=== PATIENT | female | born 1985 | race Caucasian/White ===

== ENCOUNTER 2017-08-15 14:32 | Emergency (ER) | payer SELFPAY ==
[~2017-08-15] VITALS: Ht 165.1 cm; Wt 96.2 kg
[2017-08-15 14:58] VITALS: BP 179/95; PULSE 82; RESP 16; TEMP 97.4; O2SAT 98
[2017-08-15 15:19] LABS: BILIRUBIN, URINE NEG (NEG); BLOOD, URINE NEG (NEG); GLUCOSE,URINE NEG (NEG); KETONE, URINE 40 mg/dL (NEG); NITRITE,URINE NEG (NEG); PH, URINE 5.5 (5.0-8.5); URINE COLOR YELLOW (YELLW/STRAW); URINE LEUKOCYTE ESTERASE NEG (NEG)
[2017-08-15] MEDS ORDERED: SODIUM CHLOR 0.9% 1000 ML INJ 1,000 ML IV SCH (15:19)
--- NOTE | 2017-08-15 15:29 | PD ---
HPI Chief Complaint: Abdominal Pain Time Seen by Provider: 15:18 Travel History International Travel<30 days: No Contact w/Intl Traveler<30days: No Traveled to known affect area: No History of Present Illness HPI Patient complains of epigastric to right upper quadrant area pain, radiating towards the back, 8 out of 10, onset this morning intermittently occurring throughout the day and not really improving. Patient has associated nausea but without vomiting or diarrhea. Patient denies any alleviating or aggravating factors. Patient denies any associated factors such as fever, rash, neck stiffness, headache, chest pain, back pain, No known drug allergies Past medical and past surgical history only significant for appendectomy PFSH Past Medical History Medical History: Denies Significant Hx Diminished Hearing: No Tetanus Vaccination: Unknown ?: Not LMP: 07/27/17 Past Surgical History Appendectomy: Yes Social History Alcohol Use: Yes (SOC) Tobacco Use: Yes (06/17 PPD) Substance Use: No Allergies-Medications (Allergen,Severity, Reaction): Coded Allergies: No Known Allergies (Unverified , 08/15/17) Reported Meds & Prescriptions Reported Meds & Active Scripts Active Carafate (Sucralfate) 1 Gram Tab 1 Gm PO TID On empty stomach Ultram (Tramadol HCl) 50 Mg Tab 50 Mg PO Q8H PRN Zofran Odt (Ondansetron Odt) 4 Mg Tab 4 Mg SL Q6HR PRN Review of Systems General / Constitutional: No: Fever Eyes: No: Visual changes HENT: No: Headaches Cardiovascular: No: Chest Pain or Discomfort Respiratory: No: Shortness of Breath Gastrointestinal: Positive: Nausea, Vomiting, Abdominal Pain Genitourinary: No: Dysuria Musculoskeletal: No: Pain Skin: No Rash Neurologic: No: Weakness Psychiatric: No: Depression Endocrine: No: Polydipsia Hematologic/Lymphatic: No: Easy Bruising Physical Exam Narrative GENERAL: SKIN: Warm and dry. HEAD: Atraumatic. Normocephalic. EYES: Pupils equal and round. No scleral icterus. No injection or drainage. ENT: No nasal bleeding or discharge. Mucous membranes pink and moist. NECK: Trachea midline. No JVD. CARDIOVASCULAR: Regular rate and rhythm. RESPIRATORY: No accessory muscle use. Clear to auscultation. Breath sounds equal bilaterally. GASTROINTESTINAL: Abdomen soft, non-tender, nondistended. MUSCULOSKELETAL: Extremities without clubbing, cyanosis, or edema. No obvious deformities. NEUROLOGICAL: Awake and alert. No obvious cranial nerve deficits. Motor grossly within normal limits. Five out of 5 muscle strength in the arms and legs. Normal speech. PSYCHIATRIC: Appropriate mood and affect; insight and judgment normal. Data Data Last Documented VS Vital Signs Date Time Temp Pulse Resp B/P (MAP) Pulse Ox O2 Delivery O2 Flow Rate FiO2 08/15/17 15:40 98 Room Air 08/15/17 14:58 97.4 82 16 179/95 (123) Orders Orders Urinalysis - C+S If Indicated (08/15/17 14:41) Ed Urine Pregnancytest Poc (08/15/17 14:41) Complete Blood Count With Diff (08/15/17 15:19) Comprehensive Metabolic Panel (08/15/17 15:19) Lipase (08/15/17 15:19) Us Abdomen Gallbladder (08/15/17 ) Iv Access Insert/Monitor (08/15/17 15:19) Ecg Monitoring (08/15/17 15:19) Oximetry (08/15/17 15:19) Sodium Chloride 0.9% Flush (Ns Flush) (08/15/17 15:30) Morphine Inj (Morphine Inj) (08/15/17 15:30) Ondansetron Inj (Zofran Inj) (08/15/17 15:30) Sodium Chlor 0.9% 1000 Ml Inj (Ns 1000 M (08/15/17 15:19) Labs Laboratory Tests Test 08/15/17 15:00 08/15/17 15:30 Urine Color YELLOW Urine Turbidity CLOUDY Urine pH 5.5 Urine Specific [place] GREATER/EQUAL 1.030 Urine Protein NEG mg/dL Urine Glucose (UA) NEG mg/dL Urine Ketones 40 mg/dL Urine Occult Blood NEG Urine Nitrite NEG Urine Bilirubin NEG Urine Urobilinogen 0.2 MG/DL Urine Leukocyte Esterase NEG Urine WBC 0-2 /hpf Urine Squamous Epithelial Cells > 8 /hpf Urine Bacteria FEW /hpf Urine Mucus FEW /lpf Microscopic Urinalysis Comment CULT NOT INDICATED White Blood Count 9.4 TH/MM3 Red Blood Count 4.95 MIL/MM3 Hemoglobin 15.3 GM/DL Hematocrit 44.6 % Mean Corpuscular Volume 90.1 FL Mean Corpuscular Hemoglobin 30.9 PG Mean Corpuscular Hemoglobin Concent 34.3 % Red Cell Distribution Width 13.1 % Platelet Count 319 TH/MM3 Mean Platelet Volume 8.3 FL Neutrophils (%) (Auto) 69.9 % Lymphocytes (%) (Auto) 18.7 % Monocytes (%) (Auto) 7.2 % Eosinophils (%) (Auto) 2.1 % Basophils (%) (Auto) 2.1 % Neutrophils # (Auto) 6.5 TH/MM3 Lymphocytes # (Auto) 1.8 TH/MM3 Monocytes # (Auto) 0.7 TH/MM3 Eosinophils # (Auto) 0.2 TH/MM3 Basophils # (Auto) 0.2 TH/MM3 CBC Comment AUTO DIFF Blood Urea Nitrogen 9 MG/DL Creatinine 0.69 MG/DL Random Glucose 91 MG/DL Total Protein 8.1 GM/DL Albumin 4.0 GM/DL Calcium Level 8.5 MG/DL Alkaline Phosphatase 84 U/L Aspartate Amino Transf (AST/SGOT) 38 U/L Alanine Aminotransferase (ALT/SGPT) 59 U/L Total Bilirubin 0.5 MG/DL Sodium Level 139 MEQ/L Potassium Level 3.8 MEQ/L Chloride Level 105 MEQ/L Carbon Dioxide Level 26.0 MEQ/L Anion Gap 8 MEQ/L Estimat Glomerular Filtration Rate 97 ML/MIN Lipase 162 U/L MDM Medical Decision Making Medical Screen Exam Complete: Yes Emergency Medical Condition: Yes Medical Record Reviewed: Yes Differential Diagnosis Gastritis versus peptic ulcer versus dyspepsia versus pancreatitis versus biliary colic versus otitis Narrative Course UA shows cloudy greater than 8 squamous epithelial cells few bacteria few mucous moles consistent with poor collection specimen Ultrasound does not show any cholelithiasis. Does not show any pericholecystic fluid or any evidence of gallbladder wall thickening. Complete metabolic profile shows normal electrolytes, normal kidney functions, normal lipase, the patient's bilirubin is normal patient's alk phos is normal however the AST is 38 and ALT is 59 this is probably most consistent with fatty liver. Based on these evaluation the most likely cause for this patient's intestinal symptoms is dyspeptic syndrome. Diagnosis Primary Impression: Dyspeptic syndrome Patient Instructions: Diet for Stomach Ulcers and Gastritis (ED), Gastritis (ED ), General Instructions Scripts Sucralfate (Carafate) 1 Gram Tab 1 GM PO TID for Ulcer Prevention, #90 TAB 0 Refills On empty stomach Prov: Omi Davis MD 08/15/17 Tramadol (Ultram) 50 Mg Tab 50 MG PO Q8H Y for PAIN, #15 TAB 0 Refills Prov: Omi Davis MD 08/15/17 Ondansetron Odt (Zofran Odt) 4 Mg Tab 4 MG SL Q6HR Y for Nausea/Vomiting, #20 TAB 0 Refills Prov: Omi Davis MD 08/15/17 Disposition: 01 DISCHARGE HOME Condition: Stable Omi Davis MD Aug 15, 2017 15:29
[2017-08-15] MEDS ORDERED: ONDANSETRON HCL 4 MG/2 ML VIAL IVP ONE (15:30)
[2017-08-15] MEDS ORDERED: MORPHINE SULFATE 4 MG/ML INJ IV PUSH ONE (15:30)
[2017-08-15] MEDS ORDERED: SODIUM CHLORIDE 0.9% FLUSH 10 ML FLUSH IV FLUSH PRN (15:30)
[2017-08-15 15:40] VITALS: O2SAT 98
[2017-08-15 15:53] LABS: MUCUS URINE FEW /lpf (OCC); SQUAMOUS EPITHELIAL CELL URINE > 8 /hpf (0-5); WBC, URINE 0-2 /hpf (0-5)
[2017-08-15 15:54] LABS: AUTOMATED NEUTROPHIL # 6.5 TH/MM3 (1.8-7.7); BASOPHIL # 0.2 TH/MM3 (0-0.2); BASOPHIL % 2.1 % (0.0-2.0); EOSINOPHIL # 0.2 TH/MM3 (0-0.4); EOSINOPHIL % 2.1 % (0.0-4.0); HEMATOCRIT 44.6 % (35.0-46.0); HEMOGLOBIN 15.3 GM/DL (11.6-15.3); LYMPH % 18.7 % (9.0-44.0); LYMPHOCYTE # 1.8 TH/MM3 (1.0-4.8); MEAN CELL VOLUME 90.1 FL (80.0-100.0); MEAN CORPUSCULAR HEMOGLOBIN 30.9 PG (27.0-34.0); MEAN CORPUSCULAR HGB CONC 34.3 % (32.0-36.0); MEAN PLATELET VOLUME 8.3 FL (7.0-11.0); MONO % 7.2 % (0.0-8.0); MONOCYTE # 0.7 TH/MM3 (0-0.9); NEUT % 69.9 % (16.0-70.0); PLATELET COUNT 319 TH/MM3 (150-450); RED BLOOD COUNT 4.95 MIL/MM3 (4.00-5.30); RED CELL DISTRIBUTION WIDTH 13.1 % (11.6-17.2); WHITE BLOOD COUNT 9.4 TH/MM3 (4.0-11.0)
[2017-08-15 15:54] LABS: BACTERIA, URINE FEW /hpf
[2017-08-15] MEDS ORDERED: TRAM50 PO (16:01)
[2017-08-15] MEDS ORDERED: CARA1TAB6 PO (16:01)
[2017-08-15] MEDS ORDERED: ZOFR4TAB3 SL (16:01)
--- NOTE | 2017-08-15 16:01 | RADRPT ---
EXAM DATE/TIME: 08/15/2017 15:37 [facility] COMPARISON: No previous studies available for comparison. INDICATIONS : Right upper quadrant pain. MEDICAL HISTORY : Alcohol use. Tobacco use. SURGICAL HISTORY : Appendectomy. ENCOUNTER: Initial ACUITY: 1 day PAIN SCORE: 5/10 LOCATION: Right upper quadrant MEASUREMENTS: LIVER: 15.2 cm length COMMON DUCT: 4 mm RIGHT KIDNEY: 10.2 x 4.8 x 4.7 cm FINDINGS: LIVER: Normal echotexture without focal lesion or ductal dilatation. COMMON DUCT: No intraluminal mass or stone visualized. GALLBLADDER: Contains no stones, demonstrates no wall thickening or pericholecystic fluid. PANCREAS: The visualized portions are within normal limits. RIGHT KIDNEY: No evidence of hydronephrosis, stone, or mass. CONCLUSION: Normal examination. Naveen Boyd MD on August 15, 2017 at 15:59 Board Certified Radiologist. This report was verified electronically.
[2017-08-15 16:02] LABS: CHLORIDE 105 MEQ/L (98-107); SODIUM (NA) 139 MEQ/L (136-145)
[2017-08-15 16:06] LABS: CALCIUM 8.5 MG/DL (8.5-10.1)
[2017-08-15 16:07] LABS: BLOOD UREA NITROGEN 9 MG/DL (7-18); GLUCOSE,RANDOM 91 MG/DL (74-106)
[2017-08-15 16:10] LABS: ALT (GPT) 59 U/L (10-53); AST (GOT) 38 U/L (15-37); CREATININE 0.69 MG/DL (0.50-1.00); GLOMERULAR FILTRATION RATE 97 ML/MIN (>89)
[2017-08-15 16:11] LABS: TOTAL BILIRUBIN ADULT 0.5 MG/DL (0.2-1.0); TOTAL PROTEIN 8.1 GM/DL (6.4-8.2)
[2017-08-15 16:13] LABS: ALKALINE PHOSPHATASE 84 U/L (45-117)
[2017-08-15 16:31] VITALS: BP 160/90
== END 2017-08-15 16:45 | disposition home or self-care (01) ==
LOC: PHED 14:32
DX: K30 Functional dyspepsia (principal); F17.210 Nicotine dependence, cigarettes, uncomplicated
CPT/HCPCS: 76705; 80053; 81001; 83690; 84703; 85025; 96361; 96374; 96375; 99285; J2270; J2405; J7030